=== PATIENT | female | born 1955 | race Caucasian/White ===

== ENCOUNTER 2016-05-09 15:18 | Emergency (ER) | payer OTHER ==
[2016-05-09] MEDS ORDERED: VANCOMYCIN INJ 1.5 GM in SODIUM CHLORIDE 0.9% 500 ML IV STA (16:01)
[2016-05-09] MEDS ORDERED: MUPIROCIN 2% OINT 22 GM TUBE TOP STA (16:02)
[2016-05-09] MEDS ORDERED: MUPIROCIN 2% OINT 22 GM TUBE TOP ONE (16:33)
== END 2016-05-09 18:39 | disposition home or self-care (01) ==
DX: T81.4XXA Infection following a procedure, initial encounter (principal); Y83.9 Surgical procedure, unspecified as the cause of abnormal reaction of the patient, or of later complication, without mention of misadventure at the time of the procedure
CPT/HCPCS: 87070; 87205; 96365; 99283; A9270; J3370

== ENCOUNTER 2016-06-05 14:04 | Outpatient (CLI) | payer OTHER | END 2016-06-05 14:05 | disposition home or self-care (01) | DX: C56.9 Malignant neoplasm of unspecified ovary (principal); F32.9 Major depressive disorder, single episode, unspecified; D75.9 Disease of blood and blood-forming organs, unspecified; E78.5 Hyperlipidemia, unspecified; R32 Unspecified urinary incontinence; M54.9 Dorsalgia, unspecified; L65.9 Nonscarring hair loss, unspecified; R06.00 Dyspnea, unspecified; Z51.5 Encounter for palliative care ==

== ENCOUNTER 2016-06-15 10:20 | Outpatient (CLI) | payer OTHER | END 2016-06-15 10:21 | disposition home or self-care (01) | DX: C56.9 Malignant neoplasm of unspecified ovary (principal); F06.4 Anxiety disorder due to known physiological condition; R53.83 Other fatigue; L65.9 Nonscarring hair loss, unspecified; Z51.5 Encounter for palliative care ==

== ENCOUNTER 2016-07-06 13:15 | Outpatient (CLI) | payer OTHER | END 2016-07-06 13:16 | disposition home or self-care (01) | DX: Z51.5 Encounter for palliative care (principal); F41.9 Anxiety disorder, unspecified; R53.83 Other fatigue; C56.9 Malignant neoplasm of unspecified ovary; C78.6 Secondary malignant neoplasm of retroperitoneum and peritoneum; J90 Pleural effusion, not elsewhere classified; R18.8 Other ascites; M25.50 Pain in unspecified joint; G47.00 Insomnia, unspecified; R11.0 Nausea; L65.9 Nonscarring hair loss, unspecified; Z90.710 Acquired absence of both cervix and uterus ==

== ENCOUNTER 2016-09-14 06:00 | Outpatient (CLI) | payer OTHER ==
[2016-09-14 13:25] LABS: IRON 127 ug/dL (28-170); TOTAL IRON BINDING CAPACITY 328 ug/dL (250-450); TRANSFERRIN 234 mg/dL (192-382)
[2016-09-14 13:39] LABS: FERRITIN 230.8 ng/mL (11.0-306.8)
[2016-09-14 13:55] LABS: HEMOGLOBIN A1C 0.41 g/dL
[2016-09-15 12:02] LABS: HOMOCYSTEINE 6.5 umol/L (<10.4)
[2016-09-17 00:07] LABS: COPPER 127 mcg/dL (70-175)
== END 2016-09-14 23:59 | disposition home or self-care (01) ==
LOC: LAB.R 06:00
PROVIDERS: ATTEND Naturopath
DX: C56.9 Malignant neoplasm of unspecified ovary (principal); G62.0 Drug-induced polyneuropathy; D64.81 Anemia due to antineoplastic chemotherapy; E66.09 Other obesity due to excess calories
CPT/HCPCS: 82306; 82390; 82525; 82728; 82746; 83036; 83090; 83540; 84207; 84466; 84630; 85651; 86140

== ENCOUNTER 2016-09-25 08:20 | Outpatient (CLI) | payer OTHER ==
--- NOTE | 2016-09-25 11:53 | XRAY Report ---
THREE-VIEW BILATERAL FEET: 09/25/2016 CLINICAL INDICATION: Pain, swelling. FINDINGS: AP, lateral, oblique views of the bilateral feet demonstrate mild osteoarthritis. Bilater al calcaneal spurring is noted. There is no evidence of acute fracture or dislocation. No radiopaqu e foreign body is seen in the soft tissues. IMPRESSION: MILD OSTEOARTHRITIS. JOB #: [id number] EXT JOB #:[id number]
--- NOTE | 2016-09-25 11:54 | XRAY Report ---
THREE-VIEW BILATERAL ANKLES: 09/25/2016 CLINICAL INDICATION: Pain, swelling. FINDINGS: AP, lateral, oblique views of the bilateral ankles demonstrate diffuse soft tissue swellin g. There is no evidence of fracture or dislocation. No effusion is present. Bilateral calcaneal sp urring is noted. IMPRESSION: SOFT TISSUE SWELLING, BUT NO EVIDENCE OF ACUTE FRACTURE. JOB #: [id number] EXT JOB #:[id number]
== END 2016-09-25 08:21 | disposition home or self-care (01) ==
LOC: DI 08:20
PROVIDERS: ATTEND Podiatrist
DX: M25.572 Pain in left ankle and joints of left foot (principal); M25.571 Pain in right ankle and joints of right foot; R22.43 Localized swelling, mass and lump, lower limb, bilateral

== ENCOUNTER 2016-10-26 15:48 | Outpatient (CLI) | payer OTHER | END 2016-10-26 15:49 | disposition home or self-care (01) | LOC: LAB.R 15:48 | PROVIDERS: ATTEND Naturopath | DX: R70.0 Elevated erythrocyte sedimentation rate (principal); E60 Dietary zinc deficiency | CPT/HCPCS: 82390; 82525; 84630; 85651 ==

== ENCOUNTER 2016-12-31 12:38 | Outpatient (CLI) | payer OTHER | END 2016-12-31 12:39 | disposition home or self-care (01) | LOC: CAM 12:38 | PROVIDERS: ATTEND Internal Medicine Hematology & Oncology | DX: G62.9 Polyneuropathy, unspecified (principal); C56.9 Malignant neoplasm of unspecified ovary | CPT/HCPCS: 97810; 97811 ==

== ENCOUNTER 2017-01-07 15:20 | Outpatient (CLI) | payer OTHER | END 2017-01-07 15:21 | disposition home or self-care (01) | LOC: CAM 15:20 | PROVIDERS: ATTEND Internal Medicine Hematology & Oncology | DX: G62.0 Drug-induced polyneuropathy (principal) | CPT/HCPCS: 97810; 97811 ==

== ENCOUNTER 2017-02-04 15:21 | Outpatient (CLI) | payer BC, OTHER | END 2017-02-04 15:22 | disposition home or self-care (01) | LOC: CAM 15:21 | PROVIDERS: ATTEND Internal Medicine Hematology & Oncology | DX: G62.9 Polyneuropathy, unspecified (principal) | CPT/HCPCS: 97813; 97814 ==

== ENCOUNTER 2017-03-01 08:00 | Outpatient (CLI) | payer BC | END 2017-03-01 08:01 | disposition home or self-care (01) | LOC: LAB.R 08:00 | PROVIDERS: ATTEND Naturopath | DX: R79.82 Elevated C-reactive protein (CRP) (principal) | CPT/HCPCS: 85651; 86141 ==

== ENCOUNTER 2017-04-19 08:00 | Outpatient (CLI) | payer BC | END 2017-04-19 08:01 | disposition home or self-care (01) | LOC: LAB.R 08:00 | PROVIDERS: ATTEND Naturopath | DX: R79.82 Elevated C-reactive protein (CRP) (principal); R70.0 Elevated erythrocyte sedimentation rate | CPT/HCPCS: 85651; 86140 ==

== ENCOUNTER 2017-06-21 23:19 | Outpatient (CLI) | payer BC ==
[2017-06-24 15:46] LABS: CERULOPLASMIN 30 mg/dL (18-53)
[2017-06-24 22:42] LABS: ZINC, PLASMA 81 mcg/dL (60-130)
[2017-06-24 23:06] LABS: COPPER 110 mcg/dL (70-175)
== END 2017-06-21 23:20 | disposition home or self-care (01) ==
LOC: LAB.R 23:19
PROVIDERS: ATTEND Naturopath
DX: R70.0 Elevated erythrocyte sedimentation rate (principal); E60 Dietary zinc deficiency
CPT/HCPCS: 82390; 82525; 84630; 85651; 86141

== ENCOUNTER 2017-07-13 07:30 | Outpatient (CLI) | payer BC ==
[2017-07-13 19:12] LABS: BASOPHILS % (AUTO) 0.5 %; EOSINOPHILS # (AUTO) 0.3 10^3/uL (0.0-0.7); EOSINOPHILS % (AUTO) 4.3 %; HGB - HEMOGLOBIN 14.1 g/dL (12.0-16.0); LYMPHOCYTES # (AUTO) 1.4 10^3/uL (1.5-3.5); LYMPHOCYTES % (AUTO) 19.1 %; MEAN CORPUSCULAR HEMOGLOBIN 32.2 pg (27.0-31.0); MEAN CORPUSCULAR HGB CONC 33.3 g/dL (32.0-36.0); MEAN CORPUSCULAR VOLUME 96.5 fL (81.0-99.0); MEAN PLATELET VOLUME 7.3 fL (7.9-10.8); MONOCYTES # (AUTO) 0.6 10^3/uL (0.0-1.0); MONOCYTES % (AUTO) 7.6 %; NEUTROPHILS # (AUTO) 5.2 10^3/uL (1.5-6.6); NEUTROPHILS % (AUTO) 68.5 %; PLT - PLATELET COUNT 249 10^3/uL (130-450); RED CELL DISTRIBUTION WIDTH 15.3 % (12.0-15.0); WHITE BLOOD COUNT 7.5 x10^3/uL (4.8-10.8)
== END 2017-07-13 07:31 ==
LOC: LAB.R 07:30
PROVIDERS: ATTEND Naturopath
DX: C56.9 Malignant neoplasm of unspecified ovary (principal); R79.82 Elevated C-reactive protein (CRP)
CPT/HCPCS: 81599; 82947; 82955; 85025; 86141

== ENCOUNTER 2017-07-15 18:48 | Outpatient (CLI) | payer BC ==
--- NOTE | 2017-07-16 11:53 | XRAY Report ---
THREE VIEW BILATERAL ANKLES: 07/15/2017 CLINICAL INDICATION: Pain, edema. FINDINGS: AP, lateral and oblique views of the bilateral ankles are compared to previous films of 09/25/2016. There is no evidence of acute fracture or dislocation. Degenerative changes are present, with calcaneal spurring. Soft tissue swelling has increased. IMPRESSION: 1. INTERVAL INCREASE IN SOFT TISSUE SWELLING. 2. STABLE OSTEOARTHRITIS. NO EVIDENCE OF FRACTURE. TD: 07/16/2017 11:52
== END 2017-07-15 18:49 | disposition home or self-care (01) ==
LOC: DI 18:48
PROVIDERS: ATTEND Podiatrist
DX: M19.071 Primary osteoarthritis, right ankle and foot (principal); M19.072 Primary osteoarthritis, left ankle and foot; R22.43 Localized swelling, mass and lump, lower limb, bilateral

== ENCOUNTER 2017-09-14 15:32 | Outpatient (CLI) | payer BC ==
[2017-09-16 12:18] LABS: CERULOPLASMIN 31 mg/dL (18-53)
[2017-09-16 22:17] LABS: COPPER 122 mcg/dL (70-175)
[2017-09-17 02:17] LABS: ZINC, PLASMA 55 mcg/dL (60-130)
== END 2017-09-14 15:33 | disposition home or self-care (01) ==
LOC: LAB 15:32
PROVIDERS: ATTEND Naturopath
DX: R70.0 Elevated erythrocyte sedimentation rate (principal); E60 Dietary zinc deficiency
CPT/HCPCS: 36415; 82390; 82525; 84630; 85651; 86141

== ENCOUNTER 2017-11-15 08:00 | Outpatient (CLI) | payer BC | END 2017-11-15 08:01 | disposition home or self-care (01) | LOC: LAB.R 08:00 | PROVIDERS: ATTEND Naturopath | DX: R79.82 Elevated C-reactive protein (CRP) (principal); R70.0 Elevated erythrocyte sedimentation rate; E60 Dietary zinc deficiency | CPT/HCPCS: 82390; 82525; 84630; 85651; 86140 ==

== ENCOUNTER 2018-02-07 09:00 | Outpatient (CLI) | payer BC ==
[2018-02-09 18:12] LABS: COPPER 172 mcg/dL (70-175)
[2018-02-09 20:48] LABS: ZINC, PLASMA 81 mcg/dL (60-130)
== END 2018-02-07 09:01 | disposition home or self-care (01) ==
LOC: LAB.R 09:00
DX: R79.82 Elevated C-reactive protein (CRP) (principal); R70.0 Elevated erythrocyte sedimentation rate; E60 Dietary zinc deficiency
CPT/HCPCS: 81599; 82390; 82525; 84630; 85384; 85651; 86141

== ENCOUNTER 2018-02-22 14:00 | Outpatient (CLI) | payer BC ==
--- NOTE | 2018-02-22 16:59 | CONSULTATION NOTE ---
Palliative Care Follow Up - Referral Referring Provider: Dr. 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 She did have a total abdominal hysterectomy and bilateral salpingo-oophorectomy with laparotomy on 05/07/2016. She received chemotherapy at that point in time of carboplatinum and Taxol, followed by adjuvant and carboplatinum Taxol and Avastin. 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 She is continued since that time to receive maintenance Avastin/niraparib since 08/2016. She has been having rising tumor marker, but has had negative imaging [place] 07/2016[place] [id number]. She is scheduled to get imaging this , she does recognize her disease is progressing, and she will be looking at further treatment options. She has also proceeded with support from [facility], as well as some integrated medical patient approaches including vitamin C, ketogenic diet, and continues to weigh benefits and burdens of exploring some of these alternatives. She is also awaiting to see if she is a candidate for any trials, unfortunately she has nothing currently to biopsy, when that occurs she will explore that option as well. She is managed by Dr. FAY DUMONT in the clinic as well as Dr. Eusebio diaz at [facility]. In preparing for her decline, she was originally told her prognosis was "four years". She has 1 son, would like to discuss end-of-life wishes and options given her nature as well as needing to prepare for the future. 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 She has been doing some volunteering, she has 1 son Gui, feels like she has adequate community support. Her father is still alive, but she did go through health issues with him as well as the of his . Medications/Allergies - Medications Home Medications: Ambulatory Orders Medication Instructions Recorded Confirmed Acetaminophen [Tylenol] 1,000 mg PO Q6H PRN 02/17/16 02/07/18 Docusate Sodium 100 - 200 mg PO DAILY PRN 02/17/16 02/07/18 Senna [Senokot] 2 - 4 tab PO DAILY 02/17/16 02/07/18 Loratadine [Claritin] 10 mg PO DAILY 05/25/16 02/07/18 Ibuprofen [Motrin] 600 mg PO PRN PRN 06/01/16 02/07/18 Ascorbic Acid [Vitamin C] 1,000 mg PO DAILY PRN 07/06/16 02/07/18 Calcium Citrate 500 mg PO PRN PRN 07/06/16 02/07/18 Cholecalciferol (Vitamin D3) 5,000 unit PO DAILY 07/06/16 02/07/18 [Vitamin D] Zinc 30 mg PO TID 07/06/16 02/07/18 Niraparib Tosylate [Zejula] 300 mg PO DAILY PM 09/02/16 02/07/18 Alpha Lipoic Acid 600 mg PO TID 10/05/16 02/07/18 Lactobacillus Acidophilus 1 tab PO DAILY 10/05/16 02/07/18 [Probiotic Acidophilus] Melatonin 5 mg PO DAILY 10/05/16 02/07/18 Potrero-3/Dha/Epa/Fish Oil [Fish Oil 1 tsp PO DAILY 10/05/16 02/07/18 1,000 mg Softgel] Potassium Chloride [Micro-K] 10 meq PO DAILY 10/05/16 02/07/18 LORazepam [Ativan] 0.5 mg PO Q6H PRN 10/13/16 02/07/18 Metoclopramide [Reglan] 10 mg PO Q6H PRN 10/13/16 02/07/18 Ondansetron HCl [Zofran] 4 mg PO Q8H PRN 10/13/16 02/07/18 Prochlorperazine Maleate 10 mg PO Q6H PRN 07/25/17 11/19/18 [Compazine] Magnesium Oxide,Aspartate,Citr 250 mg PO TID 10/26/16 02/07/18 [Triple Magnesium Complex] Hydrochlorothiazide 12.5 mg PO DAILY #45 tablet 05/10/17 02/07/18 Lisinopril 20 mg PO DAILY 07/12/17 02/07/18 Hon[place]iol 1 gm PO DAILY 08/02/17 02/07/18 Green Tea [place] Extract [Green Tea 3 cap PO DAILY 08/23/17 02/07/18 Extract] Curcumin 4 cap PO BID 10/04/17 02/07/18 Diclofenac Gel 1% 4 gm TOP DAILY 10/04/17 02/07/18 Reishi Mushroom 4 cap PO BID 10/04/17 02/07/18 - Allergies Allergies/Adverse Reactions: Allergies Allergy/AdvReac Type Severity Reaction Status Date / Time No Known Drug Allergies Allergy Verified 12/27/17 10:46 Review of Systems - Constitutional Constitutional: reports: Fatigue, Weight loss (45 pounds on ketogenic diet) - Cardiovascular Cardiovascular: reports: Decr. exercise tolerance. denies: Chest pain - Respiratory Respiratory: reports: SOB with exertion - Gastrointestinal Gastrointestinal: reports: Good appetite. denies: Constipation, Nausea - Musculoskeletal Musculoskeletal: reports: Muscle weakness, Joint pain - Integumentary Integumentary: reports: Other (ezcema eyebrows and along portacath left neck; fluctuates) - All Other Systems All Other Systems: reports: Reviewed and negative Physical Exam - Physical Exam General Appearance: positive: No acute distress Eyes Bilateral: positive: Normal inspection ENT: positive: No signs of dehydration Neck: positive: Trachea midline Respiratory: positive: No respiratory distress Abdomen: positive: Soft, Obese Skin: positive: Pallor, Dryness Extremities: positive: Pedal edema Neurologic/Psychiatric: positive: Oriented x3, Mood/affect nml Palliative Care - POLST Patient has POLST: Yes POLST Status: DNR, Selective Treatment Pain: Location (joints discomfort; Hemp lotion for osteoarthritis ;) Tiredness/Fatigue: Moderate (4-6) Drowsiness/Sedation: Mild (1-3) Nausea: Mild (1-3) Depression: None Anxiety: Mild (1-3) Dyspnea: Mild (1-3) Feelings of wellbeing/Perceived Quality of Life: Good, Acceptable Performance Status: Patient does have neuropathy as well as discomfort in her feet from osteoarthritis. Her balance is compromised, as well as her activity tolerance. She does have in his two-story house, with her bedroom on the top story. This is becoming more difficult for her to access, she is able to independently bathe, is managing all her ADLs and IADLs other than hiring out for household assistance. 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 She is very treatment focus at this point in time, willing to engage and integrate other alternative treatments. She is quite worried in the future about the stress and expectations that she will be asking of her son. Counseling provided at length regarding end of life, hospice, options for care end of life, how might she accommodate her current living situation, things might be of help for her in the future. We did discuss and complete the ZOHAIB ST, as a do not attempt resuscitation/allow natural , selective treatment, use of antibiotics for prolonged life, and no medically assisted nutrition. Her current D POA is her son Gui Matt phone number [phone]. Counseling provided regarding anticipatory guidance and resources to share with her son, as well as information that might be of help in the future. Encouraged and wrap-up, given some resources to explore, including [facility] house field trip, nursing homes around where her son lives, and ways she might accommodate her current living situation as she becomes less functional over time. Though she wants to be prepared for her decline, her current goals are to improve her quality and quantity of life for as long as possible as she has treatment options. She is quite realistic that these are becoming less, but is still wanting to integrate those into her current goals Results - Lab Results Lab results reviewed: Yes Impression and Recommendations - Palliative Care Impression: This is a laci 63-year-old woman with stage IV high-grade serous ovarian cancer, with rising tumor marker. She presents with low symptom burden of fatigue, neuropathy, and intermittent muscle cramp pain. Palliative care to provide support regarding anticipatory guidance and goals of care. Recommendations/Counseling Done: 1Stage IV high-grade serous ovarian cancer with peritoneal carcinomatosis. Patient with rising tumor marker, is scheduled to get follow-up scans this week. Currently on maintenance Avastin/niraparib, May be looking at alternative chemotherapy in the future. We will continue to follow regarding outcome and implications for symptom management. 2. Advanced care planning. Goal of visit was for patient to meet goals regarding anticipatory guidance and planning for future, transitioning to hospice, establish plan for end of life. ZOHAIB ST is completed, current goals are to continue treatment in addition to a great naturopathic/ketogenic support and explore further options for improving quality and quantity of life. Counseling provided regarding the above, anticipatory guidance provided regarding end-of-life care, resources reviewed. Palliative care to available to continue to provide support as patient desires based on her goals/symptoms. Time Spent: Time spent 75 minutes with greater than 50% of this done in counseling regarding advanced care planning, anticipatory guidance, and resource coordination
== END 2018-02-22 14:01 | disposition home or self-care (01) ==
LOC: PC 14:00
PROVIDERS: ATTEND Nurse Practitioner Adult Health
DX: Z51.5 Encounter for palliative care (principal); C56.9 Malignant neoplasm of unspecified ovary; C78.6 Secondary malignant neoplasm of retroperitoneum and peritoneum; Z79.899 Other long term (current) drug therapy; G62.9 Polyneuropathy, unspecified; R53.83 Other fatigue; Z66 Do not resuscitate
CPT/HCPCS: 99350

== ENCOUNTER 2018-03-30 17:01 | Outpatient (CLI) | payer BC ==
--- NOTE | 2018-03-30 18:05 | XRAY Report ---
Reason: OVARIAN CANCER/RT PLEURAL EFFUSION Procedure Date: 03/30/2018 Accession Number: [id number] / [id number] Procedure: XR - Chest 2 View X-Ray CPT Code: 22364 FULL RESULT: EXAM: CHEST RADIOGRAPHY EXAM DATE: 03/30/2018 05:35 PM. CLINICAL HISTORY: OVARIAN CANCER/RT PLEURAL EFFUSION. COMPARISON: CHEST 2 VIEW 12/29/2017 1:12 PM. TECHNIQUE: 2 views. FINDINGS: Lungs/Pleura: New small right pleural effusion with adjoining likely atelectasis/edema. Mediastinum: Heart and mediastinal contours are unremarkable. Other: Right port tip in the cavoatrial junction. IMPRESSION: New small right pleural effusion. RADIA
== END 2018-03-30 17:02 | disposition home or self-care (01) ==
LOC: DI 17:01
PROVIDERS: ATTEND Internal Medicine Hematology & Oncology
DX: J90 Pleural effusion, not elsewhere classified (principal); C56.9 Malignant neoplasm of unspecified ovary
CPT/HCPCS: 71046

== ENCOUNTER 2018-04-25 09:56 | Outpatient (CLI) | payer BC ==
[2018-04-25] MEDS ORDERED: IOVERSOL 320 100 ML VIAL IVP ONE ×2 (10:07→11:42)
[2018-04-25] MEDS ORDERED: IOVERSOL 320 50 ML VIAL ONE (10:07)
[2018-04-25] MEDS ORDERED: IOVERSOL 320 50 ML VIAL PO ONE (11:42)
--- NOTE | 2018-04-25 12:21 | CT Report ---
Reason: MALIGNANT NEOPLASM OF UNSPECIFIED OVARY Procedure Date: 04/25/2018 Accession Number: [id number] / [id number] Procedure: CT - Abdomen/Pelvis W/ CPT Code: FULL RESULT: EXAM: CT ABDOMEN AND PELVIS EXAM DATE: 04/25/2018 11:40 AM. CLINICAL HISTORY: Malignant neoplasm of unspecified ovary. COMPARISONS: Abdomen/pelvis with contrast 02/24/2018 11:27 AM Chest with contrast 02/24/2018 11:27 AM Abdomen/pelvis with contrast 08/10/2016 9:52 AM Abdomen/pelvis with contrast 03/03/2017 9:57 AM. TECHNIQUE: Routine helical CT imaging was performed through the abdomen and pelvis. IV contrast: OPTI 320 90mL. Enteric contrast: No. Reconstructions: Coronal and sagittal. In accordance with CT protocol optimization, one or more of the following dose reduction techniques were utilized for this exam: automated exposure control, adjustment of mA and/or KV based on patient size, or use of iterative reconstructive technique. FINDINGS: Lung Bases: There has been interval worsening in right-sided pleural effusion which is now moderate to large in size. There is subtotal atelectasis of the right lower lobe. Visualized lung bases are free of suspicious pulmonary nodule. Liver: There are stable water density cysts of the medial right lobe and left lobe of liver not significant changed compared to 03/03/2017. No suspicious solid or enhancing lesions within the liver noted. Gallbladder/Bile Ducts: Unremarkable. Spleen: Normal. Pancreas: Normal. Adrenal Glands: Normal. Kidneys: Normal. No masses or hydronephrosis. Peritoneal Cavity/Bowel: Stable fat and bowel-containing paramedian anterior abdominal wall hernia. No free fluid, free air or adenopathy. No masses or acute inflammatory process. The appendix is not specifically visualized. Pelvic Organs: Stable postoperative changes status post total abdominal hysterectomy/bilateral salpingo-oophorectomy. The bladder and visualized pelvic organs are within normal limits. Vasculature: No aneurysms or other significant abnormality. Bones: No significant abnormality. Other: None. IMPRESSION: 1. Interval worsening of right-sided pleural effusion now moderate to large in size with subtotal right lower lobe atelectasis. 2. No specific abnormalities of the abdomen noted. Stable exam findings of ventral hernia and hepatic cysts. RADIA
== END 2018-04-25 09:57 | disposition home or self-care (01) ==
LOC: DI 09:56
PROVIDERS: ATTEND Nurse Practitioner Adult Health
DX: J90 Pleural effusion, not elsewhere classified (principal); C56.9 Malignant neoplasm of unspecified ovary; K43.9 Ventral hernia without obstruction or gangrene; K76.89 Other specified diseases of liver
CPT/HCPCS: 74177; Q9967

== ENCOUNTER 2018-05-03 09:22 | Outpatient (CLI) | payer BC ==
[2018-05-03] MEDS ORDERED: BUFFERED LIDOCAINE 10 ML SYRINGE ONE (09:33)
[2018-05-03] MEDS ORDERED: BUFFERED LIDOCAINE 10 ML SYRINGE IU ONE (11:07)
--- NOTE | 2018-05-03 12:06 | XRAY Report ---
Reason: POST THORACENTISIS Procedure Date: 05/03/2018 Accession Number: [id number] / [id number] Procedure: XR - Chest 1 View X-Ray CPT Code: 22143 FULL RESULT: EXAM: CHEST RADIOGRAPHY EXAM DATE: 05/03/2018 10:52 AM. CLINICAL HISTORY: POST THORACENTISIS. COMPARISON: CHEST 2 VIEW 03/30/2018 5:35 PM. TECHNIQUE: 1 view. FINDINGS: There is redemonstration of a moderate right pleural effusion with interval increase in size when compared to the previous study. No pneumothorax is seen. There is a small left pneumothorax. The heart is not enlarged. There is redemonstration of a right chest port with the tip overlying the superior vena cava right atrial junction. IMPRESSION: No evidence of a pneumothorax. Moderate right pleural effusion and small left pleural effusion. RADIA
--- NOTE | 2018-05-05 13:45 | Ultrasound Report ---
Reason: OVARIAN CANCER Procedure Date: 05/03/2018 Accession Number: [id number] / [id number] Procedure: US - Thoracentesis Puncture CPT Code: FULL RESULT: EXAM: Thoracentesis Puncture, Chest 1 View X-Ray DATE: 05/03/2018 10:58 AM CLINICAL HISTORY: OVARIAN CANCER COMPARISON: 04/25/2018 CT scan abdomen and pelvis TECHNIQUE: Risks, benefits and alternatives to the procedure were discussed with the patient. All questions answered. Written and verbal consent obtained. Patient was placed in the sitting position and the skin overlying the right effusion marked with sonographic guidance. The skin was sterilely prepped and draped, and 1% buffered lidocaine was used for local anesthesia. An [facility] was advanced into the pleural space and fluid aspirated. Upon completion, the catheter was removed. FINDINGS: A total of 1500 mL of fluid was removed without immediate complication. This total includes 60 cc of fluid which were aspirated and sent in divided tubes to the laboratory for evaluation. Postprocedure chest x-ray shows no evidence of a right pneumothorax. Patient tolerated the procedure well. IMPRESSION: Ultrasound-guided right thoracentesis without immediate complications. RADIA
== END 2018-05-03 09:23 | disposition home or self-care (01) ==
LOC: DI 09:22
PROVIDERS: ATTEND Internal Medicine Hematology & Oncology
DX: C56.9 Malignant neoplasm of unspecified ovary (principal); C78.6 Secondary malignant neoplasm of retroperitoneum and peritoneum; J91.0 Malignant pleural effusion; R18.0 Malignant ascites
CPT/HCPCS: 32555; 71045

== ENCOUNTER 2018-05-12 15:08 | Outpatient (CLI) | payer BC | END 2018-05-12 15:09 | disposition home or self-care (01) | LOC: CAM 15:08 | PROVIDERS: ATTEND Internal Medicine Hematology & Oncology | DX: C56.9 Malignant neoplasm of unspecified ovary (principal) | CPT/HCPCS: 97810; 97811 ==

== ENCOUNTER 2018-05-19 16:33 | Outpatient (CLI) | payer BC | END 2018-05-19 16:34 | disposition EMS.NT | LOC: EMS 16:33 | PROVIDERS: ATTEND Surgery ==